=== PATIENT | female | born 1990 | race Hispanic/Latino ===

== ENCOUNTER 2025-02-11 14:56 | Outpatient (CLI) | payer OTHER | END 2025-02-11 14:57 | disposition home or self-care (01) | LOC: BICRAD 14:56 → RAD 14:57 | PROVIDERS: ATTEND Physician Assistant | DX: S32.021D Stable burst fracture of second lumbar vertebra, subsequent encounter for fracture with routine healing (principal) | CPT/HCPCS: 72100 ==